=== PATIENT | male | born 1955 | race Caucasian/White ===

== ENCOUNTER → 2017-07-02 19:14 | Outpatient (CLI) | payer SELFPAY ==
--- NOTE | 2017-07-02 10:00 | CYSPIN_PTH ---
PATIENT: KEVIN CHILDRESS LOC: [facility] U#:[id number] AGE/SX: 70/M ROOM: RE07/02/[address]: Dr. Marv Palma MD : [id number] BED: DIS: SPEC #: [id number] RECD: 07/03/17 08:04 STATUS: TINO NEO #: [id number] VELMA: 07/02/17 10:[address]: Marv Palma DEPT: CYTOLOGY RECD BY: Julio Cesar Herrera ENTERED: 07/03/17 08:06 SP TYPE: CYSPIN FL OTHR DR: Dr. Callum Wallace MD Tissues: Urine Procedures: Pap Stain (control) Special Stain Group II Cytospin Fluid HEADER OPERATION: Not noted PRE-OP DIAGNOSIS: History of bladder CA TISSUE SUBMITTED: Urine for cytology DIAGNOSIS CYTOLOGY Urine for cytology (cytospin): Occasional atypical urothelial cells present. Crystalline debris. AM:laura 07/04/17 CYTOLOGY STUDY Slides are reviewed. CYTOLOGY GROSS Received is 60 ml of clear yellow fluid labeled with the patient's name and and designated per the requisition as urine. Submitted for cytology preparation. 07/03/17 TC:? CPT: 03675
[2017-07-02 19:18] LABS: Cytology, Body Fluid / CSF SEE PATHOLOGY REPORT
== END ==
PROVIDERS: Family Provider Family Medicine; PCP Family Medicine; Visit Provider Urology
DX: Z85.51 Personal history of malignant neoplasm of bladder (principal)
CPT/HCPCS: 88108; 88313

== ENCOUNTER → 2017-08-22 09:03 | Outpatient (CLI) | payer OTHER, SELFPAY ==
[2017-08-22 10:22] LABS: Absolute Lymphocyte Count 1.81 X10^3/ul (0.83-4.51); Absolute Neutrophil Count 5.7 X10^3/uL (2.0-7.7); Basophil# 0.03 X10^3/uL; Basophil% 0.4 % (0-1); Eosinophil# 0.23 X10^3/uL; Eosinophils% 2.7 % (0-5); Hematocrit 41.5 % (40-54); Hemoglobin 14.7 g/dl (13.0-16.5); Lymphocyte # 1.81 X10^3/ul (4.0); Lymphocyte % 21.4 % (19-41); Mean Corp Hgb Conc 35.4 g/gl (32-36); Mean Corpuscular Hgb 30.8 pg (27.0-32.0); Mean Platelet Vol. 10.6 fl (6.2-12.0); Monocyte# 0.71 X10^3/uL; Monocyte% 8.4 % (0-10); Neutrophil # 5.65 X10^3/uL (2.7-7.7); Neutrophil % 66.9 % (47-70); Platelet Count 201 K/mm3 (150-450); RBC Distribution Width CV 12.8 % (11.6-14.6); RBC Distribution Width SD 39.7 fl (35.1-43.9); Red Blood Count 4.77 M/mm3 (4.6-6.2); White Blood Count 8.5 K/mm3 (4.4-11.0)
[2017-08-22 10:23] LABS: POSITIVE COUNT NO; POSITIVE DIFFERENTIAL NO; POSITIVE MORPHOLOGY NO
[2017-08-22 10:45] LABS: BUN 13 mg/dL (7-18); Creatinine, Serum 0.73 mg/dL (0.70-1.30); EST Glomerular Filtration Rate 115 mL/min (>60); Glucose 161 mg/dL (74-106)
[2017-08-22 10:46] LABS: ALB/GLOB Ratio 1.1 RATIO (0.9-2.4); AST(SGOT) 19 U/L (15-37); Alanine Aminotransfer ALT/SGPT 33 U/L (16-61); Albumin, Serum 3.8 g/dL (3.2-5.0); Alkaline Phosphatase 85 U/L (45-117); Anion Gap 7 (5-15); BUN/Creat Ratio 17.9 RATIO (10-20); Calcium,Total 8.5 mg/dL (8.5-10.1); Chloride 105 mmol/L (98-107); Cholesterol 115 mg/dL (200); Est Glom Filt Rate - Afr Amer 140 mL/min (>60); Globulin 3.5 g/dL (2.2-4.2); High Density Lipoprotein 42 mg/dL; PSA,Total- Diagnostic 0.64 ng/mL (0.0-4.0); Potassium 4.3 mmol/L (3.5-5.1); Protein, Total 7.3 g/dL (6.4-8.2); Sodium Level 140 mmol/L (136-145); Triglycerides 97 mg/dL; Very Low Density Lipoprotein 19 mg/dL (5-40)
[2017-08-22 11:15] LABS: Hemoglobin A1c 8.5 % (4.2-6.3)
== END ==
PROVIDERS: Family Provider Family Medicine; PCP Family Medicine; Visit Provider Family Medicine
DX: E78.5 Hyperlipidemia, unspecified (principal); N52.9 Male erectile dysfunction, unspecified; E11.65 Type 2 diabetes mellitus with hyperglycemia
CPT/HCPCS: 36415; 80053; 80061; 83036; 84153; 85025